=== PATIENT | female | born 1995 | race Caucasian/White ===

== ENCOUNTER 2016-11-17 13:47 | Outpatient (CLI) ==
--- NOTE | 2016-11-17 14:16 | US ---
EXAM: Right upper quadrant abdominal ultrasound. History: Abdominal pain. Technique: Multiple sonographic images through the abdomen were obtained. Color duplex Doppler was used to interrogate vascular flow. Findings: The liver is not enlarged. No focal liver lesions. The visualized pancreas demonstrates no gross abnormality. No abdominal ascites. No shadowing gallstones. Gallbladder wall is not thick ened. There is antegrade flow within the main portal vein. Common bile duct measures 0.2 cm in freddie carie. Limited visualization of the right kidney demonstrates no evidence for hydronephrosis. Impression: Unremarkable exam.
[2016-11-17 14:17] LABS: BASOPHILS % (AUTO) 0.3 % (0.0-3.0); EOSINOPHILS # (AUTO) 0.1 K/ul (0.0-0.7); EOSINOPHILS % (AUTO) 0.6 % (0.0-7.0); HEMATOCRIT 41.6 % (37.0-47.0); HEMOGLOBIN 14.6 g/dl (12.0-16.0); IMMATURE GRANULOCYTE % (AUTO) 0.3 % (0.0-5.0); LYMPHOCYTES % (AUTO) 20.7 (10.0-50.0); MEAN CORPUSCULAR HGB CONC 35.1 (31.8-35.4); MEAN CORPUSCULAR VOLUME 85.6 fl (81.0-99.0); MONOCYTES # (AUTO) 0.6 K/uL (0.4-2.0); MONOCYTES % (AUTO) 6.6 (0-10); NEUTROPHILS # (AUTO) 6.7 K/ul (2.0-6.9); NEUTROPHILS % (AUTO) 71.5; PLATELET COUNT 229 10^3/uL (140-440); RED BLOOD COUNT 4.86 10^6/ul (4.20-5.40); WHITE BLOOD COUNT 9.43 K/ul (4.6-10.2)
[2016-11-17 14:58] LABS: ALBUMIN 4.1 g/dL (3.4-5.0); ALBUMIN/GLOBULIN RATIO 1.17; ANION GAP 12.7; BILIRUBIN,TOTAL 0.35 mg/dL (0.00-1.20); BUN/CREATININE RATIO 7.69; CALCIUM 9.9 mg/dL (8.2-10.2); CREATININE 0.65 mg/dL (0.60-1.30); POTASSIUM 3.7 mmol/L (3.5-5.10); TOTAL PROTEIN 7.6 g/dL (6.4-8.2)
== END 2016-11-17 13:48 | disposition home or self-care (01) ==
LOC: RAD 13:47
PROVIDERS: ATTEND Physician Assistant
DX: R11.0 Nausea (principal); R10.9 Unspecified abdominal pain
CPT/HCPCS: 36415; 80053; 82150; 83690; 85025

== ENCOUNTER 2017-04-06 07:14 | Outpatient (CLI) ==
--- NOTE | 2017-04-06 08:13 | US ---
EXAM: Bilateral breast ultrasound. History: Bilateral breast palpable abnormalities Technique: Multiple sonographic images through the bilateral breasts were obtained. Color duplex Do ppler was used to interrogate vascular flow. Findings: No masses, cysts or fluid collections are identified. Impression: No sonographic evidence of malignancy. Recommend followup with ACR/ACS guidelines. BIRADS 1
--- NOTE | 2017-04-06 08:18 | US ---
EXAM: Ultrasound of the soft tissue neck. History: Left neck posterior palpable abnormality. Technique: Multiple sonographic images through the left neck were obtained. Color duplex Doppler wa s used to interrogate vascular flow. Findings: Within the subcutaneous soft tissues of the posterior left neck there is a 1.2 cm x 0.4 cm x 1.4 cm b enign appearing lymph node with fatty hilum. This correlates with the palpable abnormality. Impression: Benign subcutaneous left neck lymph node.
== END 2017-04-06 07:15 | disposition home or self-care (01) ==
LOC: RAD 07:14
PROVIDERS: ATTEND Physician Assistant
DX: R22.1 Localized swelling, mass and lump, neck (principal); N63.0 Unspecified lump in unspecified breast

== ENCOUNTER 2017-09-10 22:05 | Emergency (ER) ==
[2017-09-10 22:21] VITALS: BP 137/75; TEMP 99; BMI 24.8
[2017-09-10] MEDS ORDERED: ATIVAN PO STA (23:41)
--- NOTE | 2017-09-10 23:41 | ED.PDOC ---
General ED Provider: Dr. MARLENI MERRILL Chief Complaint: Cough Stated Complaint: Patient states she has been coughing off and on for one week. Cough is non productive. she then got very anxious and was hyperventilating then her hands go numb and got more anxious. She also feels short of breath. Time Seen by Physician: 23:36 Mode of Arrival: Walk-In Information Source: Patient, Family Primary Care Provider: JOHN BELL Nursing and Triage Documentation Reviewed and Agree: Yes Does patient meet sepsis criteria?: No System Inflammatory Response Syndrome: Resp >20/Minute Sepsis Protocol: For patient's 13 years and over: Temp is 96.8 and below OR 101 and greater Pulse >90 BPM Resp >20/minute Acutely Altered Mental Status Are patient's symptoms suggestive of a new infection, such as: -Pneumonia -Skin, Soft Tissue -Endocarditis -UTI -Bone, Joint Infection -Implantable Device -Acute Abdominal Infection -Wound Infection -Meningitis -Blood Stream Catheter Infection -Unknown Review of Systems - Review Of Systems Constitutional: Reports: No symptoms Eyes: Reports: No symptoms Ears, Nose, Mouth, Throat: Reports: No symptoms Respiratory: Reports: Cough Cardiac: Reports: No symptoms GI: Reports: No symptoms : Reports: No symptoms Musculoskeletal: Reports: No symptoms Skin: Reports: No symptoms Neurological: Reports: Anxiety Endocrine: Reports: No symptoms Hematologic/Lymphatic: Reports: No symptoms All Other Systems: Reviewed and Negative Past Medical History - Past Medical History Previously Healthy: Yes Endocrine: Reports: None Cardiovascular: Reports: None Respiratory: Reports: None Hematological: Reports: None Gastrointestinal: Reports: None Genitourinary: Reports: None Neuro/Psych: Reports: None Musculoskeletal: Reports: None Cancer: Reports: None Last Menstrual Period: 4 WEEKS AGO Other Pertinent Past Medical History: Hypotension - Surgical History General Surgical History: Reports: Unknown - Family History Family History: Reports: Unknown - Social History Smoking Status: Never smoker Hx Substance Use: No Alcohol Screening: None - Immunizations Tetanus Shot up to Date: No (UNKNOWN) Physical Exam - Physical Exam Appearance: Ill-appearing Ill-appearing: Mild Neck: Supple Respiratory: Airway patent, Breath sounds clear, Breath sounds equal, Respirations nonlabored Cardiovascular: RRR, Pulses normal, No rub, No murmur GI/: Soft, Nontender, No masses, Bowel sounds normal, No Organomegaly Musculoskeletal: Normal strength Skin: Warm, Dry Neurological: Alert, Oriented Psychiatric: Anxious Interpretation - Radiology Interpretation Radiology Interpretation By: ED Physician Radiology Results: Negative Exam Interpreted: CXR - EKG Interpretation Time of EKG #1: 23:45 Rate: Normal Rhythm: Sinus Ectopy: None [place]: NL ST Segment: Normal Interpretation: Normal EKG Critical Care Note - Critical Care Note Total Time (mins): 0 Course - Course Hematology/Chemistry: 09/10/17 23:45 09/10/17 23:45 Orders, Labs, Meds: Lab Review 09/10/17 09/10/17 09/10/17 23:45 23:45 23:45 WBC 13.45 H RBC 4.83 Hgb 14.5 Hct 40.9 MCV 84.7 MCH 30.0 MCHC 35.5 H RDW Coeff of Hiral 11.9 Plt Count 249 Immature Gran % (Auto) 0.4 Neut % (Auto) 78.3 Lymph % (Auto) 13.9 [place] % (Auto) 6.6 Eos % (Auto) 0.4 Baso % (Auto) 0.4 Immature Gran # (Auto) 0.1 Neut # (Auto) 10.5 H Lymph # (Auto) 1.9 [place] # (Auto) 0.9 Eos # (Auto) 0.1 Baso # (Auto) 0.1 D-Dimer (Manual) 252.71 Sodium 139 Potassium 3.6 Chloride 110 H Carbon Dioxide 20 L Anion Gap 12.6 BUN 6 L Creatinine 0.63 Estimated GFR (MDRD) 118.00 BUN/Creatinine Ratio 9.52 Glucose 109 Calcium 9.0 Total Bilirubin 0.4 AST 14 L ALT 10 L Alkaline Phosphatase 58 Total Creatine Kinase 112 Troponin I < 0.0100 Total Protein 7.5 Albumin 4.0 Globulin 3.5 Albumin/Globulin Ratio 1.14 Orders Category Date Time Status EKG-(ED ONLY) Stat CARDIO 09/10/17 23:41 Ordered CBC W/ AUTO DIFF Stat LAB 09/10/17 23:45 Completed COMPREHENSIVE METABOLIC PANEL Stat LAB 09/10/17 23:45 Completed CREATINE KINASE Stat LAB 09/10/17 23:45 Completed D-DIMER Stat LAB 09/10/17 23:45 Completed TROPONIN I Stat LAB 09/10/17 23:45 Completed Aspirin [Aspirin Chewable] MEDS 09/10/17 23:47 Discontinued 324 mg PO ONCE STA Benzonatate [Tessalon Perles] MEDS 09/10/17 23:52 Discontinued 100 mg PO ONCE STA Lorazepam [Ativan] MEDS 09/10/17 23:41 Discontinued 1 mg PO ONCE STA Methylprednisolone Sod Succ/Pf [Solu-Medrol 125 mg] MEDS 09/11/17 00:07 Discontinued 125 mg IM ONCE STA CHEST, 2 VIEWS PA & LAT Stat RADS 09/10/17 23:23 Taken Medications Discontinued Medications Generic Name Dose Route Start Last Admin Trade Name Catrachita AKBAR Reason Stop Dose Admin Aspirin 324 mg 09/10/17 23:47 09/11/17 00:03 Aspirin Chewable PO 09/10/17 23:48 324 mg ONCE STA Administration Benzonatate 100 mg 09/10/17 23:52 09/11/17 00:03 Tessalon Perles PO 09/10/17 23:53 100 mg ONCE STA Administration Lorazepam 1 mg 09/10/17 23:41 09/11/17 00:03 Ativan PO 09/10/17 23:42 1 mg ONCE STA Administration Methylprednisolone Sodium Succinate 125 mg 09/11/17 00:07 09/11/17 00:20 Solu-Medrol 125 Mg IM 09/11/17 00:08 125 mg ONCE STA Administration Vital Signs: Temp Pulse Resp BP Pulse Ox 09/10/17 22:05 99 F 85 28 H 137/75 98 BENTLEY Risk Score Age >/= 65: No >/= 3 CAD Risk Factors: No Known CAD (Stenosis >/= 50%): No ASA Use in Past 7 Days: No Severe Angina (>/= 2 episodes in 24 hours): No EKG ST Changes >/= 0.5mm: No Postive Cardiac Marker: No BENTLEY Total Score: 0 BENTLEY Risk Score: Risk Score Odds of by 30D 0 0.1 (0.1-0.2) 1 0.3 (0.2-0.3) 2 0.4 (0.3-0.5) 3 0.7 (0.6-0.9) 4 1.2 (1.0-1.5) 5 2.2 (1.9-2.6) 6 3.0 (2.5-3.6) 7 4.8 (3.8-6.1) Departure - Departure Time of Disposition: 01:25 Disposition: HOME SELF-CARE Discharge Problem: Cough, Panic attack Instructions: Cold Symptoms (ED), Anxiety (ED) Condition: Stable Pt referred to PMD for follow-up: Yes IPMP verified?: No Additional Instructions: Take cough medications as needed Follow up with PCP in 3 days Prescriptions: Benzonatate [Tessalon Perles] 100 mg PO TID PRN #25 capsule PRN Reason: Cold Symptons Allergies/Adverse Reactions: Allergies No Known Drug Allergies Adverse Reaction (Verified 09/10/17 22:17) Home Medications: Ambulatory Orders Norgestimate-Ethinyl Estradiol [[place] 28 Tablet] 1 tab PO DAILY 09/10/17 Benzonatate [Tessalon Perles] 100 mg PO TID PRN #25 capsule 09/11/17 Disposition Discussed With: Patient, Family
[2017-09-10] MEDS ORDERED: ASPIRIN CHEWABLE PO STA (23:47)
[2017-09-10] MEDS ORDERED: TESSALON PERLES PO STA (23:52)
[2017-09-11] MEDS ORDERED: SOLU-MEDROL 125 MG IM STA (00:07)
--- NOTE | 2017-09-11 06:29 | DI ---
Exam: Two views of the chest. Comparison: None available. Reason for exam: Cough. FINDINGS: No pneumothorax, pleural effusion, or focal consolidation. The cardiac silhouette is not enlarged. The imaged osseous structures appear grossly unremarkable without acute fracture. Impression: No acute cardiopulmonary process
== END 2017-09-11 01:36 | disposition home or self-care (01) ==
LOC: ED 22:05
DX: F41.0 Panic disorder [episodic paroxysmal anxiety] (principal); R05 Cough
CPT/HCPCS: 36415; 80053; 82550; 84484; 85025; 85379; 93005; 93010; 96372; 99283